=== PATIENT | female | born 1965 | race Caucasian/White ===

== ENCOUNTER 2025-01-24 14:44 | Inpatient (IN) ==
[2025-01-24 14:51] VITALS: TEMP 97.9
--- NOTE | 2025-01-24 15:00 | Emergency Department Note ---
Impression & Plan Chest pain, Elevated troponin, Dysphagia, Elevated WBC count, Diverticulitis ED Provider Note NAME: TALIA RODRIGUEZ AGE: 59 SEX: F : 1965 ARRIVES VIA: Walk-In INFORMANT: Patient ED PROVIDER(S): Bakari Edmondson DO CHIEF COMPLAINT: Midsternal chest pain HPI: Patient is a 59-year-old female with a history of breast cancer who just ordered chemotherapy on Tuesday. She notes that over the past 4 days she has severe pain in the middle of her sternum with only swallowing. If she is not swallowing she has no pain. She denies any headache or change in vision. No chest pain or shortness of breath. No nausea, vomiting or diarrhea. No dysuria, urgency, or frequency. No arm or jaw pain. No other exacerbating or remitting factors. ADDITIONAL HISTORY OBTAINED: Per HPI Chronic Medical/Social Conditions Affecting Care: Per HPI PAST MEDICAL HISTORY:See Below PAST SURGICAL HISTORY:See Below FAMILY HISTORY:See Below SOCIAL HISTORY:See Below HOME MEDICATIONS:See Below ALLERGIES:See Below VITALS:See Below PHYSICAL EXAMINATION: GENERAL: Sitting up in bed, alert, well appearing, well nourished, no distress, non-toxic EYE EXAM: normal conjunctiva. PERRL and EOM's grossly intact. OROPHARYNX: mucous membranes are moist NECK: supple, no nuchal rigidity, no adenopathy, non-tender LUNGS: Clear to auscultation. Normal chest wall mechanics HEART: no murmurs, S1 normal and S2 normal ABDOMEN: abdomen soft, non-tender, normo-active bowel sounds, no masses, no rebound or guarding. BACK: Back is symmetrical on inspection and there is no deformity, no midline tenderness, no CVA tenderness. SKIN: no rashes and no bruising UPPER EXTREMITIES: upper extremities are grossly normal. Radial pulses are equal bilaterally LOWER EXTREMITIES: No pitting edema. Calves are equal bilaterally NEURO EXAM: Normal sensorium, cranial nerves II-XII grossly intact, normal speech, no gross weakness of arms, no gross weakness of legs. MEDICAL DECISION MAKING: Patient is a 67-year-old female who presents ER for the above-stated complaint. IV was established and blood work was obtained. Labs showed a leukocytosis of 19,000. No significant anemia. BMP along with LFTs bilirubin was reassuring. Initial troponin was elevated at 40. Lipase was normal. External records were reviewed by cancer center [facility] notes the patient received first dose of tags in sitotoxin on 01/16. Do not favor that this is ACS as the pain is mainly predominately present was swallowing. CT of the chest and belly showed no acute pathology. CT of the belly suggested possible diverticulitis however she has no pain. Did cover with a dose of IV Zosyn after discussion with the patient at the time. Will defer to the hospitalist at this time for further management. Consults/Care Managements Discussions: Per MDM Triage Nursing notes reviewed. Limited review of prior medical records performed Vital Signs: reviewed and remarkable for no significant abnormalities Differential diagnosis: Cardiac ischemia, aortic dissection, pulmonary embolism, pneumothorax, pneumonia, pericarditis, myocarditis, esophageal rupture, GERD, cholecystitis, pancreatitis, musculoskeletal, as well as other pathologies. ER treatment provided: See below Diagnostics interpreted by me include EKG and cardiac monitoring as listed below: -Cardiac Monitoring: An order was placed for continuous cardiac monitoring. The monitor shows a rate of 90 with sinus rhythm. -ECG: Sinus rhythm rate 88 Normal axis No PVCs QTc 438 -Laboratory studies:Interpreted by me as stated above in MDM and shown below. Imaging studies: Xrays: As interpreted by me: Portable AP upright 1 view of the chest shows no focal infiltrate CTs show: CT of the chest abdomen pelvis as described above Procedures:none Critical Care: None Past Med/Surg History Problem List (Updated 01/24/25 @ 20:54 by Kirk Edward DO) Breast cancer metastasized to axillary lymph node Pulmonary nodule seen on imaging study Diverticulitis large intestine Elevated WBC count Dysphagia Elevated troponin Chest pain Pain, dental (Acute) Pain, dental (Acute) Social History Smoking Status: Current every day smoker Tobacco Type: Cigarettes Feels Safe at Home: Yes Allergies Allergies Allergy/AdvReac Type Severity Reaction Status Date / Time No Known Allergies Allergy Verified 01/24/25 16:19 Home Meds Home Medications Medication Instructions Recorded Confirmed dexamethasone 4 mg tablet 8 mg PO DIRECTED PRN PER CHEMO 01/24/25 01/24/25 INSTRUCTIONS famotidine 20 mg tablet 20 mg PO DAILY 01/24/25 01/24/25 loratadine 10 mg tablet 10 mg PO DIRECTED PRN PER CHEMO 01/24/25 01/24/25 INSTRUCTIONS lorazepam 0.5 mg tablet 0.5 mg PO BID PRN Anxiety/SLEEP 01/24/25 01/24/25 ondansetron HCl 8 mg tablet 8 mg PO Q8H PRN NAUSEA/VOMITING 01/24/25 01/24/25 oxycodone-acetaminophen 5 mg-325 1 tab PO Q4H PRN Severe Pain 01/24/25 01/24/25 mg tablet (Scale Score 7-10) prochlorperazine maleate 10 mg 10 mg PO Q6H PRN NAUSEA/VOMITING 01/24/25 01/24/25 tablet tramadol 50 mg tablet 50 mg PO Q8H PRN Pain 01/24/25 01/24/25 Results & Data (ED) Vital Signs Vital Signs - 24 hr 01/24/25 14:48 01/24/25 14:51 01/24/25 15:09 Temperature 36.6 C Temperature Source Temporal Artery Scan Pulse Rate 88 82 Pulse Rate [Apical] Pulse Rate from SpO2 Sensor 82 Respiratory Rate 16 21 Respiratory Effort / Characteristics Non-Labored Spontaneous Respiratory Depth Normal Blood Pressure 130/97 119/92 Blood Pressure [Right Arm] Blood Pressure Mean 108 101 Blood Pressure Mean [Right Arm] Pulse Oximetry 98 98 Oxygen Delivery Method Room Air Room Air Sepsis Recent Fever Within 48 Hours No Sepsis New/Unexplained Change in Mental Status No Sepsis Action Taken by Nursing No Action Required 01/24/25 15:27 01/24/25 15:30 01/24/25 16:33 Temperature Temperature Source Pulse Rate 85 81 82 Pulse Rate [Apical] Pulse Rate from SpO2 Sensor 77 83 Respiratory Rate 19 19 Respiratory Effort / Characteristics Respiratory Depth Blood Pressure 111/77 132/87 Blood Pressure [Right Arm] Blood Pressure Mean 88 102 Blood Pressure Mean [Right Arm] Pulse Oximetry 97 100 Oxygen Delivery Method Sepsis Recent Fever Within 48 Hours Sepsis New/Unexplained Change in Mental Status Sepsis Action Taken by Nursing 01/24/25 17:00 01/24/25 18:47 01/24/25 18:48 Temperature Temperature Source Pulse Rate 81 75 83 Pulse Rate [Apical] Pulse Rate from SpO2 Sensor 81 Respiratory Rate 16 17 16 Respiratory Effort / Characteristics Respiratory Depth Blood Pressure 115/73 119/87 Blood Pressure [Right Arm] Blood Pressure Mean 88 101 Blood Pressure Mean [Right Arm] Pulse Oximetry 96 95 99 Oxygen Delivery Method Sepsis Recent Fever Within 48 Hours Sepsis New/Unexplained Change in Mental Status Sepsis Action Taken by Nursing 01/24/25 19:07 01/24/25 20:00 Temperature Temperature Source Pulse Rate 80 Pulse Rate [Apical] 90 Pulse Rate from SpO2 Sensor Respiratory Rate 18 Respiratory Effort / Characteristics Respiratory Depth Blood Pressure Blood Pressure [Right Arm] 129/90 Blood Pressure Mean Blood Pressure Mean [Right Arm] 103 Pulse Oximetry 99 Oxygen Delivery Method Sepsis Recent Fever Within 48 Hours Sepsis New/Unexplained Change in Mental Status Sepsis Action Taken by Nursing Laboratory Data 01/24/25 15:01 01/24/25 15:01 Lab Results 01/24/25 01/24/25 Range/Units 15:01 16:49 WBC 19.08 H (4.8-10.8) K/ul RBC 4.10 L (4.20-5.40) M/uL Hgb 12.8 (12.0-16.0) g/dl Hct 37.8 (37.0-47.0) % MCV 92.2 (80.0-100.0) fL MCH 31.2 (25.0-34.0) pg MCHC 33.9 (32.0-36.0) g/dL RDW Std Deviation 41.2 (36.4-46.3) fL RDW Coeff of Oziel 12.2 (11.5-14.5) % Plt Count 263 (130-400) K/uL MPV 10.5 (9.4-12.4) fL Neutrophils % (Manual) 73 % Lymphocytes % (Manual) 14 % Monocytes % (Manual) 5 % Metamyelocytes % (Man) 3 % Myelocytes % (Man) 3 % Promyelocytes % (Man) 2 % Neutrophils # (Manual) 13.93 H (1.40-6.50) K/uL Total Absolute Neuts 13.93 H (1.4-6.5) K/uL Lymphocytes # (Manual) 2.67 (1.2-3.4) K/uL Total Abs Lymphocytes 2.67 (1.2-3.4) K/uL Monocytes # (Manual) 0.95 H (0.11-0.59) K/uL Metamyelocytes # (Man) 0.57 H (0-0) K/uL Myelocytes # (Manual) 0.57 H (0-0) K/uL Promyelocytes # (Man) 0.38 H (0-0) K/uL Toxic Granulation 2+ Dohle Bodies 1+ Polychromasia 1+ Sodium 135 L (136-145) mmol/L Potassium 3.5 (3.5-5.1) mmol/L Chloride 101 (98-107) mmol/L Carbon Dioxide 26 (21-32) mmol/L Anion Gap 8 (3-11) BUN 13 (6-23) mg/dl Creatinine 0.96 (0.6-1.2) mg/dl Est Cr Clr Drug Dosing 49.6 ml/min eGFR 67.73 BUN/Creatinine Ratio 13.5 (10-20) Glucose 96 (70-99(Fasting)) mg/dl Calcium 8.7 (8.6-10.3) mg/dl Total Bilirubin 0.3 (0.2-1.0) mg/dl AST 19 (13-39) U/L ALT 15 (7-52) U/L Alkaline Phosphatase 122 H (34-104) U/L Troponin I High Sens 47.9 H 20.8 H D (0-14) pg/ml Total Protein 7.1 (6.0-8.3) gm/dl Albumin 3.7 (3.4-5.0) gm/dl Globulin 3.4 (2.5-4.0) gm/dl Albumin/Globulin Ratio 1.1 (0.9-2) Lipase 17 (11-82) U/L Administered Medications Discontinued Medications Al Hydrox/Mg Hydrox/Simethicone (Aluminum/Magnesium Susp 30 Ml Udc) 30 ml PO NOW STA Stop: 01/24/25 14:59 Last Admin: 01/24/25 15:03 Dose: 30 ml Documented By: YESENIA Sodium Chloride (Nss) 1,000 mls @ 999 mls/hr IV .Q1H1M ONE Stop: 01/24/25 15:58 Last Infusion: 01/24/25 16:00 Dose: Infused Documented By: Admin: 01/24/25 15:02 Dose: 999 mls/hr Documented By: YESENIA Ioversol (Optiray 320 100ml) 84 ml IV ONCE ONE Stop: 01/24/25 17:33 Last Admin: 01/24/25 17:32 Dose: 84 ml Documented By: CHRISTY Morphine Sulfate (Morphine Sulfate 4 Mg/Ml 1 Ml Carp\Vial) 3 mg IV NOW STA Stop: 01/24/25 16:16 Last Admin: 01/24/25 16:24 Dose: Not Given Documented By: YESENIA Ondansetron HCl (Ondansetron Inj 2 Mg/Ml 2 Ml Vial) 4 mg IV NOW STA Stop: 01/24/25 16:16 Last Admin: 01/24/25 16:24 Dose: Not Given Documented By: YESENIA Tramadol HCl (Tramadol Hcl 50 Mg Tablet) 50 mg PO NOW STA Stop: 01/24/25 16:29 Last Admin: 01/24/25 16:36 Dose: Not Given Documented By: YESENIA Imaging Data Radiologist's Impression: Chest X-Ray 01/24/25 14:51 SINGLE VIEW CHEST CLINICAL HISTORY: Chest pain FINDINGS: An AP, portable, upright chest radiograph is obtained. No prior studies are available for comparison at the time of dictation. The cardiomediastinal silhouette is top normal for projection noting atherosclerotic calcification of the thoracic aorta. Nonspecific interstitial thickening is likely chronic. There is mild bibasilar atelectasis. The lungs and pleural spaces are otherwise clear. No pneumothorax is seen. The skeletal structures are osteopenic. The bony thorax is grossly intact. There is calcific tendinopathy of the right shoulder. IMPRESSION: No acute cardiopulmonary abnormality is identified. ACT 112: Negative or not required by law. Electronically signed by: Rey Jacob M.D. 01/24/2025 3:29 PM Abdomen/Pelvis CT 01/24/25 17:09 EXAM: CT abd pelvis IV con only CLINICAL HISTORY: epigastric abd pain. TECHNIQUE: CT of the abdomen and pelvis was performed with contrast 84 ml Optiray 320 , with the following protocol: axial images with, and reconstructed coronal and sagittal images. One of the following dose reduction techniques was utilized for this exam: Automated exposure control, adjustment of the mA and/or kV according to patient size, and use of iterative reconstruction. COMPARISON: No prior studies available for comparison. FINDINGS: Abdomen: Small hiatus hernia. Bowel: Left hemicolon and sigmoid diverticulae with diffuse circumferential mural thickening and long segment of edema involving the proximal descending colon, associated with pericolic fat stranding around the diverticulae. Mild circumferential mural edema of the sigmoid and cecum as well. Liver: Mildy enlarged measures 17 cm, Multiple scattered hepatic hypodense non-enhancing lesions, likely simple cysts, the largest is in the caudate lobe measuring 2.2 x 1.4 cm. No focal lesions, or masses were identified. Hepatic vasculature and biliary ducts are unremarkable. Gallbladder and Biliary System: The gallbladder is normal in size and shape. No wall thickening, pericholecystic fluid, or gallstones were identified. The common bile duct is normal in caliber without dilation. Pancreas: Pancreatic head, body, and tail are visualized and appear normal in size and density. No pancreatic masses or calcifications were noted. The pancreatic duct is not dilated. Spleen: Normal in size, shape, and density. No splenic lesions or masses were identified. Appendix: The appendix is normal in size without mukul appendiceal fat stranding, and without an appendicolith. No evidence of appendiceal abscess or perforation. Kidneys and Adrenal Glands: Both kidneys are normal in size, shape, and position. Cortical thickness is within normal limits. No renal calculi or hydronephrosis. Adrenal glands are unremarkable with no evidence of masses or hyperplasia. few tiny bilateral simple cortical cysts (Bosniak 1) Pelvis: Urinary Bladder: Normal in contour and wall thickness. No intraluminal lesions identified. Uterus: Normal in size and contour. No masses or abnormal thickening. Prominent perimetrial vessels Ovaries: Not well visualized but no gross abnormalities noted. Vagina: Normal in contour and wall thickness. Cervix: No evidence of mass or abnormal thickening. Peritoneal and Retroperitoneal Structures: No free fluid or abnormal fluid collections were identified within the abdomen or pelvis. No lymphadenopathy was noted. Bones and Soft Tissues: Pelvic bones and soft tissues are unremarkable. No fractures or abnormal masses were identified. IMPRESSION: 1. Left hemicolon acute diverticulitis. Clinical correlation is recommended. 2. Perimetrial mild vascular congestion. 3. Hepatomegaly and multiple small hepatic simple cysts. Electronically signed by Leif Pizarro 01-24-2025 7:[address] 01/24/25 17:09 Clinical history: Pain Technique: Axial computed tomography images were obtained of the chest after the administration of intravenous contrast Findings: There is mild emphysema. There is mild dependent subsegmental atelectasis in both lower lobes. There is a 4 mm left lower lobe nodule. There is a 6 mm lingular nodule. There is no pleural effusion or pneumothorax. There is no sign of pulmonary fibrosis or other diffuse interstitial process. No endobronchial lesion is seen There is no mediastinal, hilar, or axillary adenopathy. The thoracic aorta appears unremarkable with no sign of aneurysm or dissection. There is no pericardial effusion There is a 1.4 cm cyst in the caudate segment and there is a 7 mm cyst in the left hepatic lobe. There is a small hiatal hernia. No fracture is seen. No focal osseous lesion is evident Impression: 1. Mild emphysema 2. Small pulmonary nodules, likely benign but indeterminate in nature. A follow-up chest CT could be obtained in 3-6 months to ensure stability 3. Small hepatic cysts 4. Small hiatal hernia ACT 112: Positive. There are findings on this exam that require communication between the performing entity and the patient following Patient Test Result Information Act ([place] ACT 112) guidelines. Electronically signed by Jef Benedict 01-24-2025 6:23 PM Discharge Plan Visit Data Chief Complaint: Chest Pain Stated Complaint: CHEST PAIN ED Provider: Bakari Edmondson Discharge Problem: Chest pain, Elevated troponin, Dysphagia, Elevated WBC count, Diverticulitis Condition: Fair Forms Stand Alone Forms: [employer] Prescriptions Prescriptions: No Action ondansetron HCl 8 mg tablet 8 mg PO Q8H PRN (Reason: NAUSEA/VOMITING) prochlorperazine maleate 10 mg tablet 10 mg PO Q6H PRN (Reason: NAUSEA/VOMITING) tramadol 50 mg tablet 50 mg PO Q8H PRN (Reason: Pain) oxycodone-acetaminophen 5-325 mg tablet 1 tab PO Q4H PRN (Reason: Severe Pain (Scale Score 7-10)) famotidine 20 mg tablet 20 mg PO DAILY lorazepam 0.5 mg tablet 0.5 mg PO BID PRN (Reason: Anxiety/SLEEP) dexamethasone 4 mg tablet 8 mg PO DIRECTED PRN (Reason: PER CHEMO INSTRUCTIONS) loratadine 10 mg tablet 10 mg PO DIRECTED PRN (Reason: PER CHEMO INSTRUCTIONS) Referrals Referrals: Allen Brasher MD [Outside Practitioners] - Discharge Problem: Chest pain Qualifiers: Chest pain type: unspecified Qualified Code(s): R07.9 - Chest pain, unspecified Dysphagia Qualifiers: Dysphagia type: unspecified Qualified Code(s): R13.10 - Dysphagia, unspecified Elevated WBC count Qualifiers: Leukocytosis type: unspecified Qualified Code(s): D72.829 - Elevated white blood cell count, unspecified
[2025-01-24] MEDS: SODIUM CHLORIDE 0.9% 1,000 ML IV ONE (15:02)
[2025-01-24] MEDS: ALUMINUM/MAGNESIUM SUSP 30 ML UDC PO STA (15:03)
--- NOTE | 2025-01-24 15:31 | XRay Report ---
SINGLE VIEW CHEST CLINICAL HISTORY: Chest pain FINDINGS: An AP, portable, upright chest radiograph is obtained. No prior studies are available for c omparison at the time of dictation. The cardiomediastinal silhouette is top normal for projection not ing atherosclerotic calcification of the thoracic aorta. Nonspecific interstitial thickening is likel y chronic. There is mild bibasilar atelectasis. The lungs and pleural spaces are otherwise clear. No pneumothorax is seen. The skeletal structures are osteopenic. The bony thorax is grossly intact. Ther e is calcific tendinopathy of the right shoulder. IMPRESSION: No acute cardiopulmonary abnormality is identified. ACT 112: Negative or not required by law. Electronically signed by: Rey Jacob M.D. 01/24/2025 3:29 PM
[2025-01-24 15:42] LABS: Alanine Aminotransferase 15.0 U/L (7-52); Albumin Globulin Ratio 1.1 (0.9-2); Alkaline Phosphatase 122.0 U/L (34-104); Anion Gap 8.0 (3-11); Bilirubin,Total 0.3 mg/dl (0.2-1.0); Blood Urea Nitrogen 13.0 mg/dl (6-23); Calcium 8.7 mg/dl (8.6-10.3); Carbon Dioxide 26.0 mmol/L (21-32); Chloride 101.0 mmol/L (98-107); Creatinine Clr Calc Pharmacy 49.6 ml/min; Globulin 3.4 gm/dl (2.5-4.0); Glucose 96.0 mg/dl (70-99(Fasting)); Lipase 17.0 U/L (11-82); Potassium 3.5 mmol/L (3.5-5.1); Sodium 135.0 mmol/L (136-145); Total Protein 7.1 gm/dl (6.0-8.3)
[2025-01-24 16:10] LABS: Hematocrit (blood only) 37.8 % (37.0-47.0); Hemoglobin 12.8 g/dl (12.0-16.0); Mean Corpuscular Hemoglobin 31.2 pg (25.0-34.0); Mean Corpuscular Volume 92.2 fL (80.0-100.0); Platelet Count 263 K/uL (130-400); RDW Standard Deviation 41.2 fL (36.4-46.3); Red Blood Count 4.10 M/uL (4.20-5.40); White Blood Count 19.08 K/ul (4.8-10.8)
[2025-01-24] MEDS: MoRPHine SULFATE 4 MG/ML 1 ML CARP\\VIAL IV STA (16:24)
[2025-01-24] MEDS: ONDANSETRON INJ 2 MG/ML 2 ML VIAL IV STA (16:24)
[2025-01-24 16:53] LABS: ALC (manual) 2.67 K/uL (1.2-3.4); ANC (manual) 13.93 K/uL (1.4-6.5); Dohle Bodies 1+; Polychromasia 1+; Toxic Granulation 2+
[2025-01-24] MEDS: OPTIRAY 320 100ml IV ONE (17:32)
--- NOTE | 2025-01-24 18:26 | CT Scan Report ---
Clinical history: Pain Technique: Axial computed tomography images were obtained of the chest after the administration of intravenous contrast Findings: There is mild emphysema. There is mild dependent subsegmental atelectasis in both lower lobes. There is a 4 mm left lower lobe nodule. There is a 6 mm lingular nodule. There is no pleural effusion or pneumothorax. There is no sign of pulmonary fibrosis or other diffuse interstitial process. No endobronchial lesion is seen There is no mediastinal, hilar, or axillary adenopathy. The thoracic aorta appears unremarkable with no sign of aneurysm or dissection. There is no pericardial effusion There is a 1.4 cm cyst in the caudate segment and there is a 7 mm cyst in the left hepatic lobe. There is a small hiatal hernia. No fracture is seen. No focal osseous lesion is evident Impression: 1. Mild emphysema 2. Small pulmonary nodules, likely benign but indeterminate in nature. A follow-up chest CT could be obtained in 3-6 months to ensure stability 3. Small hepatic cysts 4. Small hiatal hernia ACT 112: Positive. There are findings on this exam that require communication between the performing entity and the patient following Patient Test Result Information Act ([place] ACT 112) guidelines. Electronically signed by Jef Benedict 01-24-2025 6:23 PM
--- NOTE | 2025-01-24 19:14 | CT Scan Report ---
EXAM: CT abd pelvis IV con only CLINICAL HISTORY: epigastric abd pain. TECHNIQUE: CT of the abdomen and pelvis was performed with contrast 84 ml Optiray 320 , with the following protocol: axial images with, and reconstructed coronal and sagittal images. One of the following dose reduction techniques was utilized for this exam: Automated exposure control, adjustment of the mA and/or kV according to patient size, and use of iterative reconstruction. COMPARISON: No prior studies available for comparison. FINDINGS: Abdomen: Small hiatus hernia. Bowel: Left hemicolon and sigmoid diverticulae with diffuse circumferential mural thickening and long segment of edema involving the proximal descending colon, associated with pericolic fat stranding around the diverticulae. Mild circumferential mural edema of the sigmoid and cecum as well. Liver: Mildy enlarged measures 17 cm, Multiple scattered hepatic hypodense non-enhancing lesions, likely simple cysts, the largest is in the caudate lobe measuring 2.2 x 1.4 cm. No focal lesions, or masses were identified. Hepatic vasculature and biliary ducts are unremarkable. Gallbladder and Biliary System: The gallbladder is normal in size and shape. No wall thickening, pericholecystic fluid, or gallstones were identified. The common bile duct is normal in caliber without dilation. Pancreas: Pancreatic head, body, and tail are visualized and appear normal in size and density. No pancreatic masses or calcifications were noted. The pancreatic duct is not dilated. Spleen: Normal in size, shape, and density. No splenic lesions or masses were identified. Appendix: The appendix is normal in size without mukul appendiceal fat stranding, and without an appendicolith. No evidence of appendiceal abscess or perforation. Kidneys and Adrenal Glands: Both kidneys are normal in size, shape, and position. Cortical thickness is within normal limits. No renal calculi or hydronephrosis. Adrenal glands are unremarkable with no evidence of masses or hyperplasia. few tiny bilateral simple cortical cysts (Bosniak 1) Pelvis: Urinary Bladder: Normal in contour and wall thickness. No intraluminal lesions identified. Uterus: Normal in size and contour. No masses or abnormal thickening. Prominent perimetrial vessels Ovaries: Not well visualized but no gross abnormalities noted. Vagina: Normal in contour and wall thickness. Cervix: No evidence of mass or abnormal thickening. Peritoneal and Retroperitoneal Structures: No free fluid or abnormal fluid collections were identified within the abdomen or pelvis. No lymphadenopathy was noted. Bones and Soft Tissues: Pelvic bones and soft tissues are unremarkable. No fractures or abnormal masses were identified. IMPRESSION: 1. Left hemicolon acute diverticulitis. Clinical correlation is recommended. 2. Perimetrial mild vascular congestion. 3. Hepatomegaly and multiple small hepatic simple cysts. Electronically signed by Leif Pizarro 01-24-2025 7:14 PM
--- NOTE | 2025-01-24 19:30 | History & Physical Report ---
Date of Service January 24, 2025 Assessment & Plan (1) Chest pain: Plan: Chest pain is atypical and seems to be more GI/esophageal related or chemo related However the patient has an elevated troponin which is already trending down Will check echocardiogram Consult cardiology Patient was counseled on tobacco cessation ASA low-dose for now Morphine sulfate as needed (2) Elevated troponin: Plan: Troponin level is trending down Check echocardiogram As above (3) Dysphagia: Plan: This could be chemo related Possible severe esophagitis Will give IV PPI Make n.p.o. after midnight Consult GI (4) Diverticulitis large intestine: Plan: Evidence of acute diverticulitis with stranding on CT scan However patient does not have any abdominal pain but does have an elevated white count Will cover with IV Zosyn for now GI consult (5) Elevated WBC count: Plan: Trend labs As above (6) Pulmonary nodule seen on imaging study: Plan: Incidental pulmonary nodules noted on CT scan of the chest Will need follow-up (7) Breast cancer metastasized to axillary lymph node: Plan: Patient follows with oncology She is 8 days post Taxotere and Cytoxan Plan Patient is a full code VTE prophylaxis with heparin 80 minutes spent in the care coordination of this patient. The case was discussed in detail with the emergency medicine provider and care coordinated. History of Present Illness Chief Complaint: Chest pain Primary Care Provider: Nata De La Cruz PA-C Brenda Garcia is a 59-year-old female with a history of micropapillary, grade 2 metastatic breast cancer (she had her first cycle of chemotherapy on 01/16/2025 consisting of Taxotere and Cytoxan ), tobacco use disorder, chronic low back pain and what sounds like trigeminal neuralgia. Patient presented to the oncology office today and was seen. She has been complaining of 4 days of severe pain in the upper esophagus and chest area after swallowing. Pain is noted to be severe with swallowing water, small amount of food, pills and saliva. She takes tramadol and Tylenol to help. She has been taking Pepcid which has not helped. She notes the pain is extremely worse also with burping coughing and hiccups. She has no radiation of the chest pain to the shoulders arms or jaw. There is no associated shortness of breath or diaphoresis. She denies fever or chills. She denies abdominal pain or diarrhea. There is been no melena or hematochezia. She has had dry heaves. She denies history of cardiac disease. In the emergency room her EKG shows sinus rhythm with no apparent acute changes. Her initial troponin was elevated at 47.9. Repeat is 20.8. She denies exertional chest pain. She only gets the pain with swallowing. CT scan of the chest is negative for aortic dissection. She does have indiscrete pulmonary nodules which will be need to be followed up. CT scan of the abdomen interestingly shows acute proximal descending colon diverticulitis. She denies pain in that region. However the patient's white count is elevated to 19.08 Allergies Allergy/AdvReac Type Severity Reaction Status Date / Time No Known Allergies Allergy Verified 01/24/25 16:19 Home Medications Medication Instructions Recorded Confirmed Type dexamethasone 4 mg tablet 8 mg PO DIRECTED PRN PER CHEMO 01/24/25 01/24/25 History INSTRUCTIONS famotidine 20 mg tablet 20 mg PO DAILY 01/24/25 01/24/25 History loratadine 10 mg tablet 10 mg PO DIRECTED PRN PER CHEMO 01/24/25 01/24/25 History INSTRUCTIONS lorazepam 0.5 mg tablet 0.5 mg PO BID PRN Anxiety/SLEEP 01/24/25 01/24/25 History ondansetron HCl 8 mg tablet 8 mg PO Q8H PRN NAUSEA/VOMITING 01/24/25 01/24/25 History oxycodone-acetaminophen 5 mg-325 1 tab PO Q4H PRN Severe Pain 01/24/25 01/24/25 History mg tablet (Scale Score 7-10) prochlorperazine maleate 10 mg 10 mg PO Q6H PRN NAUSEA/VOMITING 01/24/25 01/24/25 History tablet tramadol 50 mg tablet 50 mg PO Q8H PRN Pain 01/24/25 01/24/25 History Past Med/Surg History Problem List (Updated 01/24/25 @ 20:54 by Kirk Edward DO) Breast cancer metastasized to axillary lymph node Pulmonary nodule seen on imaging study Diverticulitis large intestine Elevated WBC count Dysphagia Elevated troponin Chest pain Pain, dental (Acute) Pain, dental (Acute) Social History Smoking Status: Current every day smoker Tobacco Type: Cigarettes Feels Safe at Home: Yes Review of Systems Review of Systems: Constitutional- no fever; no weight loss Eyes- no acute visual changes ENT- no sinus drainage; no pharyngitis currently but had a sore throat right after chemotherapy. Pulmonary- no cough, no wheezing, no shortness of breath Cardiac- has chest pain as above, no palpitations, no orthopnea, no dependent edema GI- as above - no dysuria, no hematuria Musculoskeletal- chronic back pain no changes Derm- no rashes, no new skin lesions, no changing skin lesions Neuro- no recent headaches, no focal neurologic symptoms Psych- no anxiety, no depression Physical Exam Physical Exam: General- adult female seen at bedside Head- atraumatic Eyes- PERRL, EOMI, anicteric ENT- oropharynx clear Neck- supple, no JVD, no adenopathy, no thyromegaly; carotids +2/2, no bruits appreciated Lungs- clear to auscultation and percussion Heart- regular rhythm; no murmur, no gallop, no rub appreciated, no palpable chest wall pain Abdomen- normal bowel sounds, soft, nontender, no masses or hepatosplenomegaly, interestingly no left lower quadrant pain Extremities- no pretibial edema, no calf tenderness; peripheral pulses intact Neuro- alert, oriented x 3; PERRL, EOMI; no facial palsy; no dysarthria; motor 5/5 bilaterally; Skin- warm & dry Results & Data Results & Data Vital Signs (Past 12 Hours) Vital Signs Temp Pulse Resp BP Pulse Ox O2 Del Method 01/24/25 19:07 80 01/24/25 18:48 83 16 99 01/24/25 18:47 75 17 119/87 95 01/24/25 17:00 81 16 115/73 96 01/24/25 16:33 82 19 132/87 100 01/24/25 15:30 81 19 111/77 97 01/24/25 15:27 85 01/24/25 15:09 82 21 119/92 98 01/24/25 14:51 Room Air 01/24/25 14:48 36.6 C 88 16 130/97 98 Room Air Diagnostic Findings Laboratory Results WBC 19.08 K/ul (4.8-10.8) H 01/24/25 15:01 RBC 4.10 M/uL (4.20-5.40) L 01/24/25 15:01 Hgb 12.8 g/dl (12.0-16.0) 01/24/25 15:01 Hct 37.8 % (37.0-47.0) 01/24/25 15:01 MCV 92.2 fL (80.0-100.0) 01/24/25 15:01 MCH 31.2 pg (25.0-34.0) 01/24/25 15:01 MCHC 33.9 g/dL (32.0-36.0) 01/24/25 15:01 RDW Std Deviation 41.2 fL (36.4-46.3) 01/24/25 15:01 RDW Coeff of Ozeil 12.2 % (11.5-14.5) 01/24/25 15: Plt Count 263 K/uL (130-400) 01/24/25 15:01 MPV 10.5 fL (9.4-12.4) 01/24/25 15:01 Neutrophils % (Manual) 73 % 01/24/25 15:01 Lymphocytes % (Manual) 14 % 01/24/25 15:01 Monocytes % (Manual) 5 % 01/24/25 15:01 Metamyelocytes % (Man) 3 % 01/24/25 15:01 Myelocytes % (Man) 3 % 01/24/25 15:01 Promyelocytes % (Man) 2 % 01/24/25 15:01 Neutrophils # (Manual) 13.93 K/uL (1.40-6.50) H 01/24/25 15:01 Total Absolute Neuts 13.93 K/uL (1.4-6.5) H 01/24/25 15:01 Lymphocytes # (Manual) 2.67 K/uL (1.2-3.4) 01/24/25 15:01 Total Abs Lymphocytes 2.67 K/uL (1.2-3.4) 01/24/25 15:01 Monocytes # (Manual) 0.95 K/uL (0.11-0.59) H 01/24/25 15:01 Metamyelocytes # (Man) 0.57 K/uL (0-0) H 01/24/25 15:01 Myelocytes # (Manual) 0.57 K/uL (0-0) H 01/24/25 15:01 Promyelocytes # (Man) 0.38 K/uL (0-0) H 01/24/25 15:01 Toxic Granulation 2+ 01/24/25 15:01 Dohle Bodies 1+ 01/24/25 15:01 Polychromasia 1+ 01/24/25 15:01 Sodium 135 mmol/L (136-145) L 01/24/25 15:01 Potassium 3.5 mmol/L (3.5-5.1) 01/24/25 15:01 Chloride 101 mmol/L (98-107) 01/24/25 15:01 Carbon Dioxide 26 mmol/L (21-32) 01/24/25 15:01 Anion Gap 8 (3-11) 01/24/25 15:01 BUN 13 mg/dl (6-23) 01/24/25 15:01 Creatinine 0.96 mg/dl (0.6-1.2) 01/24/25 15:01 Est Cr Clr Drug Dosing 49.6 ml/min 01/24/25 15:01 eGFR 67.73 01/24/25 15:01 BUN/Creatinine Ratio 13.5 (10-20) 01/24/25 15:01 Glucose 96 mg/dl (70-99(Fasting)) 01/24/25 15:01 Calcium 8.7 mg/dl (8.6-10.3) 01/24/25 15:01 Total Bilirubin 0.3 mg/dl (0.2-1.0) 01/24/25 15:01 AST 19 U/L (13-39) 01/24/25 15:01 ALT 15 U/L (7-52) 01/24/25 15:01 Alkaline Phosphatase 122 U/L (34-104) H 01/24/25 15:01 Troponin I High Sens 20.8 pg/ml (0-14) H D 01/24/25 16:49 Total Protein 7.1 gm/dl (6.0-8.3) 01/24/25 15:01 Albumin 3.7 gm/dl (3.4-5.0) 01/24/25 15:01 Globulin 3.4 gm/dl (2.5-4.0) 01/24/25 15:01 Albumin/Globulin Ratio 1.1 (0.9-2) 01/24/25 15:01 Lipase 17 U/L (11-82) 01/24/25 15:01 Impressions Chest X-Ray 01/24/25 14:51 SINGLE VIEW CHEST CLINICAL HISTORY: Chest pain FINDINGS: An AP, portable, upright chest radiograph is obtained. No prior studies are available for comparison at the time of dictation. The cardiomediastinal silhouette is top normal for projection noting atherosclerotic calcification of the thoracic aorta. Nonspecific interstitial thickening is likely chronic. There is mild bibasilar atelectasis. The lungs and pleural spaces are otherwise clear. No pneumothorax is seen. The skeletal structures are osteopenic. The bony thorax is grossly intact. There is calcific tendinopathy of the right shoulder. IMPRESSION: No acute cardiopulmonary abnormality is identified. ACT 112: Negative or not required by law. Electronically signed by: Rey Jacob M.D. 01/24/2025 3:29 PM Abdomen/Pelvis CT 01/24/25 17:09 EXAM: CT abd pelvis IV con only CLINICAL HISTORY: epigastric abd pain. TECHNIQUE: CT of the abdomen and pelvis was performed with contrast 84 ml Optiray 320 , with the following protocol: axial images with, and reconstructed coronal and sagittal images. One of the following dose reduction techniques was utilized for this exam: Automated exposure control, adjustment of the mA and/or kV according to patient size, and use of iterative reconstruction. COMPARISON: No prior studies available for comparison. FINDINGS: Abdomen: Small hiatus hernia. Bowel: Left hemicolon and sigmoid diverticulae with diffuse circumferential mural thickening and long segment of edema involving the proximal descending colon, associated with pericolic fat stranding around the diverticulae. Mild circumferential mural edema of the sigmoid and cecum as well. Liver: Mildy enlarged measures 17 cm, Multiple scattered hepatic hypodense non-enhancing lesions, likely simple cysts, the largest is in the caudate lobe measuring 2.2 x 1.4 cm. No focal lesions, or masses were identified. Hepatic vasculature and biliary ducts are unremarkable. Gallbladder and Biliary System: The gallbladder is normal in size and shape. No wall thickening, pericholecystic fluid, or gallstones were identified. The common bile duct is normal in caliber without dilation. Pancreas: Pancreatic head, body, and tail are visualized and appear normal in size and density. No pancreatic masses or calcifications were noted. The pancreatic duct is not dilated. Spleen: Normal in size, shape, and density. No splenic lesions or masses were identified. Appendix: The appendix is normal in size without mukul appendiceal fat stranding, and without an appendicolith. No evidence of appendiceal abscess or perforation. Kidneys and Adrenal Glands: Both kidneys are normal in size, shape, and position. Cortical thickness is within normal limits. No renal calculi or hydronephrosis. Adrenal glands are unremarkable with no evidence of masses or hyperplasia. few tiny bilateral simple cortical cysts (Bosniak 1) Pelvis: Urinary Bladder: Normal in contour and wall thickness. No intraluminal lesions identified. Uterus: Normal in size and contour. No masses or abnormal thickening. Prominent perimetrial vessels Ovaries: Not well visualized but no gross abnormalities noted. Vagina: Normal in contour and wall thickness. Cervix: No evidence of mass or abnormal thickening. Peritoneal and Retroperitoneal Structures: No free fluid or abnormal fluid collections were identified within the abdomen or pelvis. No lymphadenopathy was noted. Bones and Soft Tissues: Pelvic bones and soft tissues are unremarkable. No fractures or abnormal masses were identified. IMPRESSION: 1. Left hemicolon acute diverticulitis. Clinical correlation is recommended. 2. Perimetrial mild vascular congestion. 3. Hepatomegaly and multiple small hepatic simple cysts. Electronically signed by Leif Pizarro 01-24-2025 7:[address] 01/24/25 17:09 Clinical history: Pain Technique: Axial computed tomography images were obtained of the chest after the administration of intravenous contrast Findings: There is mild emphysema. There is mild dependent subsegmental atelectasis in both lower lobes. There is a 4 mm left lower lobe nodule. There is a 6 mm lingular nodule. There is no pleural effusion or pneumothorax. There is no sign of pulmonary fibrosis or other diffuse interstitial process. No endobronchial lesion is seen There is no mediastinal, hilar, or axillary adenopathy. The thoracic aorta appears unremarkable with no sign of aneurysm or dissection. There is no pericardial effusion There is a 1.4 cm cyst in the caudate segment and there is a 7 mm cyst in the left hepatic lobe. There is a small hiatal hernia. No fracture is seen. No focal osseous lesion is evident Impression: 1. Mild emphysema 2. Small pulmonary nodules, likely benign but indeterminate in nature. A follow-up chest CT could be obtained in 3-6 months to ensure stability 3. Small hepatic cysts 4. Small hiatal hernia ACT 112: Positive. There are findings on this exam that require communication between the performing entity and the patient following Patient Test Result Information Act ([place] ACT 112) guidelines. Electronically signed by Jef Benedict 01-24-2025 6:23 PM
[2025-01-24] MEDS: PIPERACILLIN/TAZOBACTAM 4.5 GM/100 ML BAG IV ONE (21:28)
[2025-01-24] MEDS ORDERED: ACETAMINOPHEN 325 MG TAB PO PRN (21:54)
[2025-01-24] MEDS ORDERED: LORazepam 0.5 MG TAB PO PRN (21:54)
[2025-01-24] MEDS ORDERED: MoRPHine SULFATE 2 MG/ML CARP IV PRN (21:54)
[2025-01-24] MEDS ORDERED: ONDANSETRON INJ 2 MG/ML 2 ML VIAL IV PRN (21:54)
[2025-01-24] MEDS ORDERED: LORATADINE 10 MG TAB PO PRN (21:54)
[2025-01-24] MEDS: HEPARIN SOD 5,000 UNIT/0.5 ML VIAL SQ SCH (21:58)
[2025-01-24] MEDS: PANTOprazole 40 MG/10 ML SYR IV SCH (22:12)
[2025-01-24] MEDS: SODIUM CHLORIDE 0.9% 500 ML IV SCH (22:16)
[2025-01-25] MEDS: PIPERACILLIN/TAZOBACTAM 4.5 GM/100 ML BAG IV SCH (02:31)
[2025-01-25 06:37] LABS: Hematocrit (blood only) 33.4 % (37.0-47.0); Hemoglobin 11.4 g/dl (12.0-16.0); Mean Corpuscular Hemoglobin 32.1 pg (25.0-34.0); Mean Corpuscular Volume 94.1 fL (80.0-100.0); Platelet Count 242 K/uL (130-400); RDW Standard Deviation 42.8 fL (36.4-46.3); Red Blood Count 3.55 M/uL (4.20-5.40); White Blood Count 14.69 K/ul (4.8-10.8)
[2025-01-25 06:58] LABS: Anion Gap 5.0 (3-11); Blood Urea Nitrogen 8.0 mg/dl (6-23); Calcium 8.0 mg/dl (8.6-10.3); Carbon Dioxide 27.0 mmol/L (21-32); Chloride 109.0 mmol/L (98-107); Creatinine Clr Calc Pharmacy 54.6 ml/min; Glucose 82.0 mg/dl (70-99(Fasting)); Magnesium 2.0 mg/dl (1.7-2.4); Potassium 3.9 mmol/L (3.5-5.1); Sodium 141.0 mmol/L (136-145)
[2025-01-25] MEDS: ASPIRIN 81 MG ECTAB PO SCH (07:29)
[2025-01-25] MEDS ORDERED: MoRPHine SULFATE 4 MG/ML 1 ML CARP\\VIAL IV PRN (07:40)
[2025-01-25] MEDS: LACTATED RINGER'S 1,000 ML IV SCH (07:43)
[2025-01-25] MEDS: OPTIRAY 320 100ml IV ONE (08:44)
--- NOTE | 2025-01-25 09:05 | CT Scan Report ---
CT soft tissue neck w con CLINICAL HISTORY: concern for chemo esophagitis COMPARISON STUDY: Chest CT yesterday FINDINGS: Mildly enlarged paraesophageal lymph node at the upper chest again seen. There are findings of emphysema in the visualized lung apices. There is swallowing artifact. There is mild asymmetric t hickening of the left tonsillar pillar. Otherwise the visualized upper airway is patent and symmetric . Parotid glands, submandibular glands, and thyroid gland are unremarkable. No enlarged adenopathy se en at the neck. There are mild cervical spine degenerative changes. IMPRESSION: 1. Mild asymmetric thickening of the left tonsillar pillar could represent inflammation/left tonsilli tis versus artifact from coapted soft tissues. 2. No other acute findings seen. 3. Otherwise as described. ACT 112: Negative or not required by law. Electronically signed by: Jaylon Fountain M.D. 01/25/2025 9:03 AM
--- NOTE | 2025-01-25 10:53 | Gastrointestinal Consultation ---
Date of Consultation January 25, 2025 Assessment & Plan (1) Odynophagia: She notes she does not have an issue swallowing food. She does not feel that it gets stuck. She feels that there is discomfort in the epigastric region after eating. Patient is eager to leave the hospital and wishes for outpatient evaluation. Given her medical history, symptoms, and tobacco use, I do think she should have an EGD if cardiac etiology has been excluded. Our staff will work to arrange this for the outpatient setting as she wishes to go home. I would continue Protonix 40 mg BID on discharge. Given she is currently undergoing chemo, could also consider empirically treating for esophageal billy as well until her EGD when we can assess further. (2) Diverticulitis large intestine: Noted on CT a/p. Patient is asymptomatic. She denies history of diverticulitis. Her white blood cell count did improve with antibiotic treatment. Continue antibiotic therapy on discharge x 10 days. Low residue diet for now. Consider colonoscopy in 6 weeks for reassessment. Supervising Physician Co-Signing Physician Notes Patient seen and examined and agree with GIULIA Angela as above Patient feeling better today Abd: Soft, NT, ND, +BS Continue current therapy and supportive care She is scheduled for outpatient EGD for further evaluation of her recent symptoms. History of Present Illness Reason for Consultation: dysphagia, ? diverticulitis Attending Physician: Bradly Phelps MD History of Present Illness Brenda Garcia is a 59-year-old female with a history of micropapillary, grade 2 metastatic breast cancer (she had her first cycle of chemotherapy on 01/16/2025 consisting of Taxotere and Cytoxan ), tobacco use disorder, chronic low back pain and what sounds like trigeminal neuralgia. Patient was sent to the ED after seeing outpatient oncology. She was experiencing of 4 days of severe pain in the epigastric and chest area. She notes she can swallow food, it does not feel stuck, but she has lingering discomfort in the epigastric region after. She denies heartburn or reflux. There is no associated shortness of breath or diaphoresis. She denies fever or chills. She denies abdominal pain or diarrhea. She denies melena or hematochezia. In the emergency room her EKG shows sinus rhythm with no apparent acute changes. Her initial troponin was elevated at 47.9. Repeat is 20.8. Then follow-up was 21.5. She denies exertional chest pain. CT scan of the chest is negative for aortic dissection. CT scan of the abdomen shows acute proximal descending colon diverticulitis. She denies pain in that region. However the patient's white count was >19,000 on admission. Allergies Allergy/AdvReac Type Severity Reaction Status Date / Time No Known Allergies Allergy Verified 01/24/25 16:19 Home Medications Medication Instructions Recorded Confirmed Type dexamethasone 4 mg tablet 8 mg PO DIRECTED PRN PER CHEMO 01/24/25 01/24/25 History INSTRUCTIONS famotidine 20 mg tablet 20 mg PO DAILY 01/24/25 01/24/25 History loratadine 10 mg tablet 10 mg PO DIRECTED PRN PER CHEMO 01/24/25 01/24/25 History INSTRUCTIONS lorazepam 0.5 mg tablet 0.5 mg PO BID PRN Anxiety/SLEEP 01/24/25 01/24/25 History ondansetron HCl 8 mg tablet 8 mg PO Q8H PRN NAUSEA/VOMITING 01/24/25 01/24/25 History oxycodone-acetaminophen 5 mg-325 1 tab PO Q4H PRN Severe Pain 01/24/25 01/24/25 History mg tablet (Scale Score 7-10) prochlorperazine maleate 10 mg 10 mg PO Q6H PRN NAUSEA/VOMITING 01/24/25 01/24/25 History tablet tramadol 50 mg tablet 50 mg PO Q8H PRN Pain 01/24/25 01/24/25 History fluconazole 200 mg tablet 400 mg (2 x 200 mg) PO DAILY 14 01/25/25 Rx days #28 tabs pantoprazole 40 mg tablet,delayed 40 mg PO BID 14 days #28 tabs 01/25/25 Rx release (Protonix) Patient History Social History Smoking Status: Current every day smoker Tobacco Type: Cigarettes Second Hand Exposure: Yes; Do You Dip or Chew Tobacco: No; Hx Alcohol Use: No Hx Substance Use: No Preferred Language: Korean Communication Ability: Effective Liquor Department Manager Required: No Beliefs That Will Affect Care: None Current Living Situation: Spouse Feels Safe at Home: Yes Assistive Devices: None Review of Systems Constitutional: no fever and no chills Cardiovascular: no chest pain Gastrointestinal: + problem reported (Epigastric pain afte r swallowing) Physical Exam Constitutional: well developed Respiratory: normal respiratory effort Gastrointestinal (Abdomen): normal bowel sounds, soft, nontender, no hepatosplenomegaly Psychiatric: Orientation: alert and oriented x 3 Results & Data Vital Signs (Past 12 Hours) Vital Signs Temp Pulse Pulse Resp BP Pulse Ox O2 Del Method 01/25/25 09:26 75 01/25/25 07:51 36.6 C 63 18 106/70 98 Room Air 01/25/25 03:01 36.6 C 69 16 95/63 L 92 Room Air PG Care Time/CCT Total # of Minutes Spent Total Time Spent with Patient: Total time spent is greater than 50% in coordination of care (as documented) at patient's floor/unit and/or counseling patient: Coding Level of Care Code 44266 IN/OBS CONSULT LVL 4,60M Diagnoses Odynophagia R13.10 Diverticulitis large intestine K57.32
[2025-01-25 11:49] VITALS: BP 120/78; RESP 20; O2SAT 99
--- NOTE | 2025-01-25 11:54 | Electrocardiogram Report ---
Test Reason : Blood Pressure : */* mmHG Vent. Rate : 88 BPM Atrial Rate : 88 BPM P-R Int : 128 ms QRS Dur : 70 ms QT Int : 362 ms P-R-T Axes : 52 33 26 degrees QTcB Int : 438 ms Normal sinus rhythm Nonspecific ST abnormality Abnormal ECG No previous ECGs available Confirmed by Keon Skelton ([id number]) on 01/25/2025 11:53:43 AM Referred By: REFERRED SELF Confirmed By: Keon Skelton
--- NOTE | 2025-01-25 11:54 | Electrocardiogram Report ---
Test Reason : Blood Pressure : */* mmHG Vent. Rate : 65 BPM Atrial Rate : 65 BPM P-R Int : 136 ms QRS Dur : 82 ms QT Int : 416 ms P-R-T Axes : 66 45 33 degrees QTcB Int : 432 ms Sinus rhythm with Premature atrial complexes Otherwise normal ECG When compared with ECG of 24-Jan-2025 14:55, (unconfirmed) Premature atrial complexes are now Present Nonspecific T wave abnormality no longer evident in Anterior leads Confirmed by Keon Skelton ([id number]) on 01/25/2025 11:53:29 AM Referred By: REFERRED SELF Confirmed By: Keon Skelton
--- NOTE | 2025-01-25 14:37 | Discharge Summary ---
Discharge Summary Date of Service January 25, 2025 Principal Dx & Hospital Course #1 = Principal Diagnosis (1) Chest pain: Chest pain is atypical and seems to be more GI/esophageal related or chemo related However the patient has an elevated troponin which is already trending down Will check echocardiogram Consult cardiology Patient was counseled on tobacco cessation ASA low-dose for now Morphine sulfate as needed (2) Elevated troponin: Troponin level is trending down Check echocardiogram As above (3) Dysphagia: This could be chemo related Possible severe esophagitis Will give IV PPI Make n.p.o. after midnight Consult GI (4) Diverticulitis large intestine: Evidence of acute diverticulitis with stranding on CT scan However patient does not have any abdominal pain but does have an elevated white count Will cover with IV Zosyn for now GI consult (5) Elevated WBC count: Trend labs As above (6) Pulmonary nodule seen on imaging study: Incidental pulmonary nodules noted on CT scan of the chest Will need follow-up (7) Breast cancer metastasized to axillary lymph node: Patient follows with oncology She is 8 days post Taxotere and Cytoxan Plan Patient is a full code VTE prophylaxis with heparin 80 minutes spent in the care coordination of this patient. The case was discussed in detail with the emergency medicine provider and care coordinated. Notes For Next Care Provider 59-year-old female with a history of micropapillary, grade 2 metastatic breast cancer (she had her first cycle of chemotherapy on 01/16/2025 consisting of Taxotere and Cytoxan ), tobacco use disorder, chronic low back pain and what sounds like trigeminal neuralgia who presents for chest pain. Admitted to medicine with concern for esophagtitis. Also noted to have asymptomatic diverticulitis on imaging. GI consulted, recommended outpatient EGD, consideration for esophagitis. Speech consulted, patient swallowing well. Patient strongly requesting discharge due to family situation at home, medically stable for discharge on 01/25/2025. To do: [ ] f/u with oncology, GI -may need dose reduction of chemotherapy or rotation to another agent due to chemotherapy induced colitis Medication Changes From Visit -see below Admission HPI Per Admitting Provider Brenda Brandonesdraskevinantonio is a 59-year-old female with a history of micropapillary, grade 2 metastatic breast cancer (she had her first cycle of chemotherapy on 01/16/2025 consisting of Taxotere and Cytoxan ), tobacco use disorder, chronic low back pain and what sounds like trigeminal neuralgia. Patient presented to the oncology office today and was seen. She has been complaining of 4 days of severe pain in the upper esophagus and chest area after swallowing. Pain is noted to be severe with swallowing water, small amount of food, pills and saliva. She takes tramadol and Tylenol to help. She has been taking Pepcid which has not helped. She notes the pain is extremely worse also with burping coughing and hiccups. She has no radiation of the chest pain to the shoulders arms or jaw. There is no associated shortness of breath or diaphoresis. She denies fever or chills. She denies abdominal pain or diarrhea. There is been no melena or hematochezia. She has had dry heaves. She denies history of cardiac disease. In the emergency room her EKG shows sinus rhythm with no apparent acute changes. Her initial troponin was elevated at 47.9. Repeat is 20.8. She denies exertional chest pain. She only gets the pain with swallowi ng. CT scan of the chest is negative for aortic dissection. She does have indiscrete pulmonary nodules which will be need to be followed up. CT scan of the abdomen interestingly shows acute proximal descending colon diverticulitis. She denies pain in that region. However the patient's white count is elevated to 19.08 Discharge Exam Gen: A&O 3 NAD HEENT: NCAT, EOMI, not icteric. External ears normal. No rhinorrhea. Moist mucous membranes. Neck: Supple, full range of motion, no observable masses, No meningeal sign. Lungs: No Respiratory distress. CV: RRR, no edema. Abdomen: Soft, nondistended, No rebound tenderness. MSK: No joint swelling, no redness. Skin: No rashes, petechiae, lesions. Normal color per patient. Neuro: Normal Gait, Grossly intact. Psych: Appropriate for situation. Updated Medication List Medication Instructions Recorded Confirmed Type dexamethasone 4 mg tablet 8 mg PO DIRECTED PRN PER CHEMO 01/24/25 01/24/25 History INSTRUCTIONS famotidine 20 mg tablet 20 mg PO DAILY 01/24/25 01/24/25 History loratadine 10 mg tablet 10 mg PO DIRECTED PRN PER CHEMO 01/24/25 01/24/25 History INSTRUCTIONS lorazepam 0.5 mg tablet 0.5 mg PO BID PRN Anxiety/SLEEP 01/24/25 01/24/25 History ondansetron HCl 8 mg tablet 8 mg PO Q8H PRN NAUSEA/VOMITING 01/24/25 01/24/25 History oxycodone-acetaminophen 5 mg-325 1 tab PO Q4H PRN Severe Pain 01/24/25 01/24/25 History mg tablet (Scale Score 7-10) prochlorperazine maleate 10 mg 10 mg PO Q6H PRN NAUSEA/VOMITING 01/24/25 01/24/25 History tablet tramadol 50 mg tablet 50 mg PO Q8H PRN Pain 01/24/25 01/24/25 History fluconazole 200 mg tablet 400 mg (2 x 200 mg) PO DAILY 14 01/25/25 Rx days #28 tabs pantoprazole 40 mg tablet,delayed 40 mg PO BID 14 days #28 tabs 01/25/25 Rx release (Protonix) Hospital Stay Data Consultations 01/24/25 19:17 ED Decision to Admit Stat 01/24/25 21:54 Consult Gastroenterology Routine Diagnostic Imagining Performed 01/24/25 17:09 CT abd pelvis IV con only Stat CT chest diagnostic w con Stat 01/25/25 07:35 CT neck soft tissues [CT soft tissue neck w con] Urgent Pending Results Patient Have Any Pending Studies at Discharge: No Discharge Instructions Given to Patient (Per Discharging Provider) 1. Please follow up with GI, oncology, and PCP. 2. Take medications as prescribed. Total Time Total Time Spent Total Time Spent (In Minutes): I spent a total of 35 minutes in direct patient care, including [id number] time with the patient and/or family, reviewing medical records, ordering and reviewing diagnostic tests, and coordinating care with other healthcare providers. This time includes: history taking, physical examination, medical decision making, counseling, ECG interpretation, imaging interpretation, lab interpretation, orders, and education, excluding time spent in the performance of separately billed services.
[2025-01-25 14:58] VITALS: PULSE 81
== END 2025-01-25 15:45 | disposition home or self-care (01) | DRG 392 ==
LOC: ED 14:44 → SUATTDRO 20:31 → 2E 20:31